=== PATIENT | male | born 1980 | race African-American/Black ===

== ENCOUNTER 2017-03-09 08:43 | Emergency (ER) | payer OTHER ==
[2017-03-09 08:54] VITALS: BP 113/70; PULSE 72; TEMP 98.7; BMI 23.0
== END 2017-03-09 09:20 | disposition left against medical advice (07) ==
LOC: JER 08:43
DX: Z53.21 Procedure and treatment not carried out due to patient leaving prior to being seen by health care provider (principal)
CPT/HCPCS: 99281-25

== ENCOUNTER 2022-09-22 09:10 | Inpatient (IN) | payer OTHER ==
[2022-09-22 09:39] VITALS: BMI 27.8
[2022-09-22] MEDS ORDERED: NALOXONE HCL 0.4 MG/ML VIAL IM PRN (10:50)
[2022-09-22] MEDS ORDERED: MAG HYDROX/AL HYDROX/SIMETH 30 ML UNIT-DOSE CUP PO PRN (10:50)
[2022-09-22] MEDS ORDERED: NALOXONE HCL (KLOXXADO) 8 MG SPRAY NS PRN (10:50)
[2022-09-22] MEDS ORDERED: POLYETHYLENE GLYCOL (HEALTHYLAX) 3350 17 GM PACKET PO PRN (10:50)
[2022-09-22] MEDS ORDERED: LOPERAMIDE HCL 2 MG CAPSULE PO PRN (10:50)
[2022-09-22] MEDS ORDERED: IBUPROFEN 600 MG TABLET (FP) PO PRN (10:50)
[2022-09-22] MEDS ORDERED: COLLOIDAL OATMEAL 1 BAR EACH TP PRN (10:50)
[2022-09-22] MEDS ORDERED: ACETAMINOPHEN 325 MG TABLET (FP) PO PRN (10:50)
[2022-09-22] MEDS ORDERED: IBUPROFEN 400 MG TABLET (FP) PO PRN (10:50)
[2022-09-22] MEDS ORDERED: AMMONIUM LACTATE 12% LOTION 225 GM BOTTLE TP PRN (10:50)
[2022-09-22] MEDS ORDERED: TUBERCULIN PPD 5 TU/0.1ML SYRINGE (IN PATIENT USE ONLY) ID ONE (10:50)
[2022-09-22] MEDS ORDERED: BENZOCAINE/MENTHOL (CHLORASEPTIC ) LOZENGE MM PRN (10:50)
[2022-09-22] MEDS ORDERED: guaiFENesin 600 MG TABLET.ER (FP) PO PRN (10:50)
[2022-09-22] MEDS ORDERED: MAGNESIUM HYDROX 2400MG/30ML ORAL SUSPENSION 30 ML CUP PO PRN (10:50)
[2022-09-22] MEDS ORDERED: BENZONATATE 200 MG CAPSULE PO PRN (10:50)
[2022-09-22 14:26] LABS: POTASSIUM 3.8 mmol/L (3.5-5.1)
[2022-09-22 14:28] LABS: HEMATOCRIT 43.9 % (35.4-49); HEMOGLOBIN 15.2 GM/dL (11.7-16.9); MCH 34.1 pg (25.7-33.7); MCHC 34.6 g/dl (32.0-35.9); MEAN CELL VOLUME 98.5 fl (80-96); MEAN PLT VOLUME 7.5 fl (7.5-11.1); PLATELET COUNT 273 10^3/uL (134-434); RBC 4.46 M/mm3 (4.00-5.60); RDW 12.6 % (11.9-15.9); WHITE BLOOD COUNT 6.2 K/mm3 (4.0-10.0)
[2022-09-22 14:31] LABS: CALCIUM 9.4 mg/dL (8.5-10.1)
[2022-09-22 14:32] LABS: ALBUMIN 4.2 g/dl (3.4-5.0); BLOOD UREA NITROGEN 17.4 mg/dL (7-18)
[2022-09-22 14:35] LABS: CREATININE 1.1 mg/dL (0.55-1.3)
[2022-09-22 14:37] LABS: BILIRUBIN,TOTAL 0.9 mg/dL (0.2-1)
[2022-09-22 14:38] LABS: TOT PROT 7.5 g/dl (6.4-8.2)
[2022-09-22 14:49] LABS: SYPHILIS W/ RPR CONF NON-REACTIVE (NONREACTIVE)
[2022-09-22] MEDS: PRENATAL VITAMINS W/ FOLIC ACID TABLET (FP) PO SCH (14:51)
[2022-09-22] MEDS: THIAMINE HCL 100 MG TABLET (FP) PO SCH (21:12)
[2022-09-22] MEDS: MELATONIN 5 MG TABLETS PO SCH (21:12)
[2022-09-23] MEDS: PRENATAL VITAMINS W/ FOLIC ACID TABLET (FP) PO SCH (09:35)
[2022-09-23 09:48] LABS: PH,URINE 5.5 (5.0-8.0); URINE APPEARANCE CLEAR; URINE BILIRUBIN NEGATIVE (NEGATIVE); URINE COLOR YELLOW; URINE GLUCOSE (UA) NEGATIVE (NEGATIVE); URINE KETONE NEGATIVE (NEGATIVE); URINE LEUK ESTERASE NEGATIVE (NEGATIVE); URINE NITRITE NEGATIVE (NEGATIVE); URINE PROTEIN NEGATIVE (NEGATIVE)
[2022-09-23] MEDS: BENZTROPINE MESYLATE 1 MG TABLET PO SCH ×2 (11:23→22:59)
[2022-09-23] MEDS: propRANOLol HCL 10 MG TABLET PO SCH ×2 (12:00→22:59)
[2022-09-23] MEDS ORDERED: ARIPiprazole 5 MG TABLET ONE (21:17)
[2022-09-23] MEDS: THIAMINE HCL 100 MG TABLET (FP) PO SCH (22:59)
[2022-09-23] MEDS: MELATONIN 5 MG TABLETS PO SCH (22:59)
[2022-09-23] MEDS: ARIPiprazole 10 MG TABLET PO SCH (22:59)
[2022-09-24] MEDS: PRENATAL VITAMINS W/ FOLIC ACID TABLET (FP) PO SCH (09:38)
[2022-09-24] MEDS: BENZTROPINE MESYLATE 1 MG TABLET PO SCH ×2 (09:38→21:20)
[2022-09-24] MEDS ORDERED: ARIPiprazole 10 MG TABLET PO SCH (10:00)
[2022-09-24] MEDS: propRANOLol HCL 10 MG TABLET PO SCH ×3 (11:00→21:20)
[2022-09-24] MEDS ORDERED: fluPHENAZine DECANOATE 125 MG/5ML VIAL IM ONE (12:00)
[2022-09-24] MEDS ORDERED: ARIPiprazole 5 MG TABLET ONE (18:33)
[2022-09-24] MEDS: THIAMINE HCL 100 MG TABLET (FP) PO SCH (21:20)
[2022-09-24] MEDS: MELATONIN 5 MG TABLETS PO SCH (21:20)
[2022-09-24] MEDS: ARIPiprazole 10 MG TABLET PO SCH (21:21)
[2022-09-25] MEDS: hydrOXYzine PAMOATE 25 MG CAPSULE (FP) PO PRN (06:41)
[2022-09-25] MEDS: BENZTROPINE MESYLATE 1 MG TABLET PO SCH ×2 (09:30→21:06)
[2022-09-25] MEDS: PRENATAL VITAMINS W/ FOLIC ACID TABLET (FP) PO SCH (09:30)
[2022-09-25] MEDS: propRANOLol HCL 10 MG TABLET PO SCH ×2 (09:30→21:06)
[2022-09-25] MEDS ORDERED: ARIPiprazole 5 MG TABLET ONE (19:04)
[2022-09-25] MEDS: THIAMINE HCL 100 MG TABLET (FP) PO SCH (21:05)
[2022-09-25] MEDS: MELATONIN 5 MG TABLETS PO SCH (21:05)
[2022-09-25] MEDS: ARIPiprazole 10 MG TABLET PO SCH (21:06)
[2022-09-26] MEDS: BENZTROPINE MESYLATE 1 MG TABLET PO SCH ×2 (09:26→21:46)
[2022-09-26] MEDS: PRENATAL VITAMINS W/ FOLIC ACID TABLET (FP) PO SCH (09:26)
[2022-09-26] MEDS: propRANOLol HCL 10 MG TABLET PO SCH ×2 (11:05→21:48)
[2022-09-26] MEDS ORDERED: ARIPiprazole 5 MG TABLET ONE (18:49)
[2022-09-26] MEDS: ARIPiprazole 10 MG TABLET PO SCH (21:45)
[2022-09-26] MEDS: THIAMINE HCL 100 MG TABLET (FP) PO SCH (21:45)
[2022-09-26] MEDS: MELATONIN 5 MG TABLETS PO SCH (21:46)
[2022-09-27] MEDS: PRENATAL VITAMINS W/ FOLIC ACID TABLET (FP) PO SCH (09:50)
[2022-09-27] MEDS: propRANOLol HCL 10 MG TABLET PO SCH ×2 (09:51→21:07)
[2022-09-27] MEDS: BENZTROPINE MESYLATE 1 MG TABLET PO SCH ×2 (09:51→21:07)
[2022-09-27] MEDS ORDERED: ARIPiprazole 5 MG TABLET ONE (18:35)
[2022-09-27] MEDS: MELATONIN 5 MG TABLETS PO SCH (21:07)
[2022-09-27] MEDS: MIRTAZAPINE 15 MG TABLET (FP) PO PRN (21:07)
[2022-09-27] MEDS: THIAMINE HCL 100 MG TABLET (FP) PO SCH (21:07)
[2022-09-27] MEDS: ARIPiprazole 10 MG TABLET PO SCH (21:08)
[2022-09-28] MEDS: PRENATAL VITAMINS W/ FOLIC ACID TABLET (FP) PO SCH (09:45)
[2022-09-28] MEDS: BENZTROPINE MESYLATE 1 MG TABLET PO SCH ×2 (09:45→21:18)
[2022-09-28] MEDS: propRANOLol HCL 10 MG TABLET PO SCH ×2 (09:45→21:18)
[2022-09-28] MEDS ORDERED: ARIPiprazole 5 MG TABLET ONE (20:12)
[2022-09-28] MEDS: MIRTAZAPINE 15 MG TABLET (FP) PO PRN (21:19)
[2022-09-28] MEDS: MELATONIN 5 MG TABLETS PO SCH (21:20)
[2022-09-28] MEDS: THIAMINE HCL 100 MG TABLET (FP) PO SCH (21:20)
[2022-09-28] MEDS: ARIPiprazole 10 MG TABLET PO SCH (21:52)
[2022-09-29] MEDS: PRENATAL VITAMINS W/ FOLIC ACID TABLET (FP) PO SCH (09:28)
[2022-09-29] MEDS: BENZTROPINE MESYLATE 1 MG TABLET PO SCH ×2 (09:28→21:16)
[2022-09-29] MEDS: propRANOLol HCL 10 MG TABLET PO SCH ×2 (09:28→21:16)
[2022-09-29] MEDS ORDERED: ARIPiprazole 5 MG TABLET ONE (18:58)
[2022-09-29] MEDS: MIRTAZAPINE 15 MG TABLET (FP) PO PRN (21:15)
[2022-09-29] MEDS: THIAMINE HCL 100 MG TABLET (FP) PO SCH (21:16)
[2022-09-29] MEDS: MELATONIN 5 MG TABLETS PO SCH (21:16)
[2022-09-29] MEDS: ARIPiprazole 10 MG TABLET PO SCH (21:17)
[2022-09-30] MEDS: BENZTROPINE MESYLATE 1 MG TABLET PO SCH ×2 (09:46→21:33)
[2022-09-30] MEDS: propRANOLol HCL 10 MG TABLET PO SCH ×2 (09:46→21:33)
[2022-09-30] MEDS: PRENATAL VITAMINS W/ FOLIC ACID TABLET (FP) PO SCH (09:47)
[2022-09-30] MEDS ORDERED: ARIPiprazole 5 MG TABLET ONE (18:59)
[2022-09-30] MEDS: hydrOXYzine PAMOATE 25 MG CAPSULE (FP) PO PRN (21:33)
[2022-09-30] MEDS: MIRTAZAPINE 15 MG TABLET (FP) PO PRN (21:33)
[2022-09-30] MEDS: ARIPiprazole 10 MG TABLET PO SCH (21:33)
[2022-09-30] MEDS: THIAMINE HCL 100 MG TABLET (FP) PO SCH (21:33)
[2022-09-30] MEDS: MELATONIN 5 MG TABLETS PO SCH (21:34)
[2022-10-01] MEDS: BENZTROPINE MESYLATE 1 MG TABLET PO SCH ×2 (09:16→21:21)
[2022-10-01] MEDS: PRENATAL VITAMINS W/ FOLIC ACID TABLET (FP) PO SCH (09:16)
[2022-10-01] MEDS: propRANOLol HCL 10 MG TABLET PO SCH ×2 (09:16→22:03)
[2022-10-01] MEDS ORDERED: ARIPiprazole 5 MG TABLET ONE (18:40)
[2022-10-01] MEDS: MELATONIN 5 MG TABLETS PO SCH (21:21)
[2022-10-01] MEDS: ARIPiprazole 10 MG TABLET PO SCH (21:21)
[2022-10-01] MEDS: THIAMINE HCL 100 MG TABLET (FP) PO SCH (21:21)
[2022-10-02] MEDS: propRANOLol HCL 10 MG TABLET PO SCH ×2 (10:05→22:11)
[2022-10-02] MEDS: PRENATAL VITAMINS W/ FOLIC ACID TABLET (FP) PO SCH (10:05)
[2022-10-02] MEDS: BENZTROPINE MESYLATE 1 MG TABLET PO SCH ×2 (10:05→22:00)
[2022-10-02] MEDS ORDERED: ARIPiprazole 5 MG TABLET ONE (20:14)
[2022-10-02] MEDS: MELATONIN 5 MG TABLETS PO SCH (21:59)
[2022-10-02] MEDS: THIAMINE HCL 100 MG TABLET (FP) PO SCH (21:59)
[2022-10-02] MEDS: ARIPiprazole 10 MG TABLET PO SCH (22:00)
[2022-10-02] MEDS: MIRTAZAPINE 15 MG TABLET (FP) PO PRN (22:00)
[2022-10-02] MEDS ORDERED: ARTIFICIAL TEARS (POLYVINYL ALCOHOL) OPTH DROPS OS PRN (22:38)
[2022-10-03] MEDS: POLYMYXIN B SULFATE/TMP 10 ML OPHTHALMIC SOLUTION OS SCH ×5 (06:37→21:33)
[2022-10-03] MEDS: BENZTROPINE MESYLATE 1 MG TABLET PO SCH ×2 (10:27→21:31)
[2022-10-03] MEDS: propRANOLol HCL 10 MG TABLET PO SCH ×2 (10:27→21:32)
[2022-10-03] MEDS: PRENATAL VITAMINS W/ FOLIC ACID TABLET (FP) PO SCH (10:28)
[2022-10-03] MEDS ORDERED: ARIPiprazole 5 MG TABLET ONE (19:33)
[2022-10-03] MEDS: ARIPiprazole 10 MG TABLET PO SCH (21:31)
[2022-10-03] MEDS: MELATONIN 5 MG TABLETS PO SCH (21:31)
[2022-10-03] MEDS: THIAMINE HCL 100 MG TABLET (FP) PO SCH (21:31)
[2022-10-04] MEDS: POLYMYXIN B SULFATE/TMP 10 ML OPHTHALMIC SOLUTION OS SCH ×5 (06:56→21:29)
[2022-10-04] MEDS: BENZTROPINE MESYLATE 1 MG TABLET PO SCH ×2 (09:27→21:28)
[2022-10-04] MEDS: propRANOLol HCL 10 MG TABLET PO SCH ×2 (09:27→21:28)
[2022-10-04] MEDS: PRENATAL VITAMINS W/ FOLIC ACID TABLET (FP) PO SCH (09:27)
[2022-10-04] MEDS ORDERED: ARIPiprazole 5 MG TABLET ONE (19:08)
[2022-10-04] MEDS: THIAMINE HCL 100 MG TABLET (FP) PO SCH (21:27)
[2022-10-04] MEDS: MELATONIN 5 MG TABLETS PO SCH (21:28)
[2022-10-04] MEDS: MIRTAZAPINE 15 MG TABLET (FP) PO PRN (21:28)
[2022-10-04] MEDS: ARIPiprazole 10 MG TABLET PO SCH (21:28)
[2022-10-05] MEDS: POLYMYXIN B SULFATE/TMP 10 ML OPHTHALMIC SOLUTION OS SCH ×5 (06:37→21:38)
[2022-10-05] MEDS: PRENATAL VITAMINS W/ FOLIC ACID TABLET (FP) PO SCH (09:49)
[2022-10-05] MEDS: BENZTROPINE MESYLATE 1 MG TABLET PO SCH ×2 (09:49→21:38)
[2022-10-05] MEDS: propRANOLol HCL 10 MG TABLET PO SCH ×2 (09:49→21:37)
[2022-10-05] MEDS: MIRTAZAPINE 15 MG TABLET (FP) PO PRN (21:37)
[2022-10-05] MEDS: ARIPiprazole 10 MG TABLET PO SCH (21:37)
[2022-10-05] MEDS: THIAMINE HCL 100 MG TABLET (FP) PO SCH (21:37)
[2022-10-05] MEDS: MELATONIN 5 MG TABLETS PO SCH (21:38)
[2022-10-06] MEDS: POLYMYXIN B SULFATE/TMP 10 ML OPHTHALMIC SOLUTION OS SCH ×2 (06:38→09:06)
[2022-10-06 09:03] VITALS: BP 104/70; PULSE 70; RESP 16; TEMP 96.9
[2022-10-06] MEDS: BENZTROPINE MESYLATE 1 MG TABLET PO SCH (09:05)
[2022-10-06] MEDS: PRENATAL VITAMINS W/ FOLIC ACID TABLET (FP) PO SCH (09:05)
[2022-10-06] MEDS: propRANOLol HCL 10 MG TABLET PO SCH (09:06)
== END 2022-10-06 09:11 | disposition home or self-care (01) | DRG 772 ==
LOC: YASAS 09:10 → Y3E 14:05
PROVIDERS: ADMIT Allergy & Immunology; ATTEND Psychiatry & Neurology Pain Medicine
PROC: HZ42ZZZ Group Counseling for Substance Abuse Treatment, Cognitive-Behavioral (ICD-10-PCS; principal; 2022-09-22)
DX: F10.20 Alcohol dependence, uncomplicated (principal); F16.20 Hallucinogen dependence, uncomplicated; F20.9 Schizophrenia, unspecified; G25.71 Drug induced akathisia; H10.32 Unspecified acute conjunctivitis, left eye
CPT/HCPCS: 36415; 80053; 81003; 85027; 86780; 86803; 87635; 87811; 93005; 93010